=== PATIENT | male | born 1995 | race African-American/Black ===

== ENCOUNTER 2025-02-04 09:00 | Inpatient (IN) | payer OTHER ==
[~2025-02-04] VITALS: Ht 177.8 cm; Wt 86.4 kg
[2025-02-04] MEDS: FAMOTIDINE 20 MG/2 ML VIAL IVP ONE (09:17)
[2025-02-04] MEDS: MORPHINE SULFATE 2 MG/ML SYRINGE IVP ONE (09:17)
[2025-02-04] MEDS: ONDANSETRON HCL 4 MG/2 ML VIAL IVP ONE (09:17)
[2025-02-04] MEDS: SODIUM CHLORIDE 0.9% 1,000 ML IV ONE ×2 (09:18→11:29)
[2025-02-04] MEDS ORDERED: IOHEXOL 350 MG/ML 100 ML VIAL ONE (09:49)
[2025-02-04] MEDS ORDERED: SODIUM CHLORIDE 0.9% 100 ML ONE (09:49)
[2025-02-04 09:50] LABS: PLATELET COUNT (AUTO) 302 K/uL (150-450); RED BLOOD CELL COUNT(AUTO) 5.06 MIL/uL (4.50-5.90); RED CELL DISTRIBUTION WIDTH 14.0 % (11.5-14.5); WHITE BLOOD COUNT (AUTO) 12.9 K/uL (4.5-11.0)
[2025-02-04 10:06] LABS: CALCIUM, TOTAL 9.8 mg/dL (8.8-10.5); CREATININE 1.32 mg/dL (0.60-1.30); GLOMERULAR FILTR. RATE CALC > 60 mL/min (>60); GLUCOSE,RANDOM 121 mg/dL (70-110); SODIUM SERUM 143 mmol/L (136-145); UREA NITROGEN, BLOOD 17 mg/dL (7-18)
[2025-02-04] MEDS: METOCLOPRAMIDE HCL 5 MG/ML 2 ML VIAL IVP ONE (10:12)
[2025-02-04 10:22] LABS: ALCOHOL, BLOOD (SERUM) < 3 mg/dL (0-10)
[2025-02-04 10:25] LABS: TROPONIN I-HIGH SENSITIVITY 5 ng/L (<76)
[2025-02-04 10:28] LABS: ASPARTATE AMINOTRANSFERASE 33 U/L (15-37); PHOSPHORUS 2.8 mg/dL (2.5-4.9); TOTAL PROTEIN, SERUM 7.7 g/dL (6.4-8.2)
[2025-02-04 10:33] LABS: CREATINE KINASE, TOTAL ONLY 1030 U/L (39-308)
[2025-02-04 10:38] LABS: APPEARANCE,URINE CLEAR (CLEAR); GLUCOSE, URINE (UA) NEGATIVE (NEGATIVE); LEUKOCYTE ESTERASE ,URINE NEGATIVE (NEGATIVE); NITRATE,URINE NEGATIVE (NEGATIVE); OCCULT BLOOD,URINE SMALL (NEGATIVE); PH,URINE DRUG SCREEN 6.0 (5.0-8.0); SPECIFIC GRAVITIY, URINE 1.029 (1.003-1.030)
[2025-02-04 10:45] LABS: ALCOHOL, URINE DRUG SCREEN NEGATIVE (NEGATIVE); AMPHET/METH SCREEN,URINE NEGATIVE (NEGATIVE); BARBITURATE SCREEN, URINE NEGATIVE (NEGATIVE); CANNABINOID SCREEN,URINE POSITIVE (NEGATIVE); COCAINE SCREEN,URINE NEGATIVE (NEGATIVE); METHADONE SCREEN, URINE NEGATIVE (NEGATIVE)
[2025-02-04 10:51] LABS: SULFOSALICYLIC ACID,URINE 2+ (Negative)
[2025-02-04] MEDS ORDERED: ONDANSETRON HCL 4 MG/2 ML VIAL IVP PRN (11:15)
[2025-02-04] MEDS ORDERED: ACETAMINOPHEN 325 MG TABLET PO PRN (11:15)
[2025-02-04] MEDS ORDERED: MAGNESIUM HYDROXIDE SUSPENSION 30 ML UDCUP PO PRN (11:15)
[2025-02-04] MEDS: PANTOPRAZOLE SODIUM 40 MG/VIAL IVP SCH (11:30)
[2025-02-04 15:00] VITALS: BP 146/59; PULSE 55; RESP 19; TEMP 98.8; O2SAT 98
[2025-02-05 05:16] VITALS: BP 125/63; PULSE 64; RESP 18; TEMP 98.1; O2SAT 99
== END 2025-02-05 05:43 | disposition left against medical advice (07) | DRG 249 ==
LOC: EMS 09:01 → EDH 11:02 → 6S 14:54
PROVIDERS: ADMIT Internal Medicine; ATTEND Internal Medicine
DX: R11.2 Nausea with vomiting, unspecified (principal); R65.10 Systemic inflammatory response syndrome (SIRS) of non-infectious origin without acute organ dysfunction; K29.70 Gastritis, unspecified, without bleeding; F12.90 Cannabis use, unspecified, uncomplicated; Z53.29 Procedure and treatment not carried out because of patient's decision for other reasons
CPT/HCPCS: 71045; 74177; 80048; 80076; 80307; 81001; 81002; 82550; 83690; 83735; 83880; 84100; 84484; 85025; 85610; 85730; 86850; 86900; 86901; 93005; 96361; 96374; 96375; 99285; G0480; J1200; J1630; J2270; J2405; J2470; J2765; J3490; J7030; J7050; 36415-L1; 36415-TC